=== PATIENT | male | born 2000 | race Two or more races ===

== ENCOUNTER 2024-11-13 06:52 | Day surgery (SDC) | payer OTHER ==
[~2024-11-13] VITALS: Ht 124.5 cm; Wt 22.2 kg
[~2024-11-13 06:52] MED LIST: RINGERS SOLUTION,LACTATED 1,000 ML IV ONE
[2024-11-13] MEDS ORDERED: AMPICILLIN SODIUM 2 GM/NS 0 ML IV ONE (07:36)
== END 2024-11-13 08:50 | disposition home or self-care (01) ==
LOC: SURGERY 06:52
PROVIDERS: ATTEND Dentist General Practice
DX: K05.6 Periodontal disease, unspecified (principal); Z53.8 Procedure and treatment not carried out for other reasons; K59.00 Constipation, unspecified; J45.909 Unspecified asthma, uncomplicated; H54.3 Unqualified visual loss, both eyes; Z93.1 Gastrostomy status; Z87.01 Personal history of pneumonia (recurrent); K21.9 Gastro-esophageal reflux disease without esophagitis; Z91.018 Allergy to other foods
CPT/HCPCS: 71045; J7120; J0290